=== PATIENT | female | born 1990 | race Caucasian/White ===

== ENCOUNTER 2022-09-04 16:26 | Emergency (ER) | payer OTHER ==
[~2022-09-04] VITALS: Ht 172.7 cm; Wt 81.7 kg
[2022-09-04] MEDS ORDERED: CEPH500 PO (19:10)
== END 2022-09-04 19:18 | disposition home or self-care (01) ==
LOC: ER 16:26
DX: L02.214 Cutaneous abscess of groin (principal); F17.210 Nicotine dependence, cigarettes, uncomplicated
CPT/HCPCS: A9270

== ENCOUNTER → 2023-01-03 | Outpatient (CLI) | payer OTHER ==
[~2023-01-03] MED LIST: CEPH500 PO
[2023-01-03 18:29] LABS: Source, Urine Voided
[2023-01-03 19:38] LABS: Appearance, Urine Turbid (Clear); Bilirubin, Urine Neg (Neg); Blood, Urine Neg (Neg); Color, Urine Yellow (P-Yellow); Glucose Qualitative, Urine Neg (Neg); Ketones, Urine 1+ (Neg); Leukocyte Esterase, Urine 3+ (Neg); Nitrite, Urine Neg (Neg); Protein, Urine 1+ (Neg); Specific Gravity, Urine 1.025 (1.003-1.022); Urobilinogen, Urine 2+ (Normal)
[2023-01-03 20:00] LABS: Amorphous Mod (0-Heavy); Bacteria Mod /hpf; Hyaline Casts 0-2 /lpf (0-2); Red Blood Cells, Urine 0-2 /hpf (0-2); Squamous Epithelial Cells Few /hpf (Few); White Blood Cells, Urine 25-50 /hpf (0-5)
[2023-01-03 20:01] LABS: Calcium Oxalate Crystals Rare /hpf; Granular Casts 0-2 /lpf (0)
[2023-01-04 13:57] LABS: Candida species (DNA Probe) Negative (NEGATIVE); G. vaginalis (DNA Probe) Negative (NEGATIVE); T. vaginalis (DNA Probe) Negative (NEGATIVE)
== END | disposition home or self-care (01) ==
LOC: LAB 18:27 → LAB SHORT 18:27
PROVIDERS: Obstetrics & Gynecology
DX: Z01.419 Encounter for gynecological examination (general) (routine) without abnormal findings (principal); Z11.3 Encounter for screening for infections with a predominantly sexual mode of transmission; O23.599 Infection of other part of genital tract in pregnancy, unspecified trimester; O99.891 Other specified diseases and conditions complicating pregnancy; R30.0 Dysuria
CPT/HCPCS: 81001; 87086; 87480; 87510; 87660

== ENCOUNTER 2023-07-28 07:25 | Inpatient (IN) | payer OTHER ==
[~2023-07-28] VITALS: Ht 172.7 cm; Wt 92.3 kg
[2023-07-28] VITALS (9 sets, daily range): BP systolic 120–137; BP diastolic 68–89
[2023-07-28 08:20] LABS: BASOPHILS ABSOLUTE AUTO 0.04 K/mm3 (0.00-0.23); BASOPHILS PERCENT AUTO 1 % (0-2); EOSINOPHILS PERCENT AUTO 1 % (0-6); Hematocrit 33.3 % (33.0-51.0); Hemoglobin 11.5 g/dL (11.5-16.0); IMMATURE GRAN ABSOLUTE AUTO 0.05 K/mm3 (0.00-0.10); IMMATURE GRAN PERCENT AUTO 1 % (0-1); LYMPHOCYTES ABSOLUTE AUTO 1.77 K/mm3 (0.84-5.20); LYMPHOCYTES PERCENT AUTO 21 % (21-46); MONOCYTES ABSOLUTE AUTO 0.59 K/mm3 (0.16-1.47); MONOCYTES PERCENT AUTO 7 % (4-13); Mean Corpuscular HGB 31.5 pg (26.0-34.0); Mean Corpuscular HGB Conc 34.5 g/dL (31.5-36.5); Mean Corpuscular Volume 91 fL (80-100); Mean Platelet Volume 11.9 fL (9.1-12.4); NEUTROPHILS ABSOLUTE AUTO 5.71 K/mm3 (1.96-9.15); NEUTROPHILS PERCENT AUTO 69 % (41-73); Platelet Count 132 K/mm3 (150-400); RDW Coefficient Variation 13.7 % (11.7-14.2); RDW Standard Deviation 45.1 fL (35.1-46.3); Red Blood Cell Count 3.65 M/mm3 (3.80-5.20); White Blood Cell Count 8.26 K/mm3 (4.00-11.30)
[2023-07-28] MEDS ORDERED: FLINTSTONES WIT18 M2 PO (08:35)
[2023-07-28] MEDS ORDERED: Vitamin C100 M1 PO (08:35)
[2023-07-29 00:20] VITALS: BP 121/70
[2023-07-29 03:29] VITALS: BP 130/82
--- NOTE | 2023-07-29 06:21 | NUR ---
pt requested feeding help. notified nurse no further needs at this time.
[2023-07-29 07:34] VITALS: BP 119/78
[2023-07-29 12:09] VITALS: BP 123/68
[2023-07-29 16:35] VITALS: BP 111/73
--- NOTE | 2023-07-29 18:00 | NUR ---
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 Denies questions, verbalizes understanding.
[2023-07-29 19:33] VITALS: BP 123/57
--- NOTE | 2023-07-29 21:31 | NUR ---
2005: PRINTED DISCHARGE INSTRUCTIONS REVIEWED WITH PATIENT AND SIGNIFICANT OTHER, DENIES ADDITIONAL QUESTIONS AND CONCERNS. DISCHARGE TO HOME TO CARE OF SIGNIFICANT OTHER.
== END 2023-07-29 20:07 | disposition home or self-care (01) | DRG 807 ==
LOC: BC 07:25 → OBS 07:25 → BC 07:37
PROVIDERS: ADMIT Advanced Practice Midwife
PROC: 10E0XZZ Delivery of Products of Conception, External Approach (ICD-10-PCS; principal; 2023-07-28)
PROC: 3E033VJ Introduction of Other Hormone into Peripheral Vein, Percutaneous Approach (ICD-10-PCS; 2023-07-28)
PROC: 10907ZC Drainage of Amniotic Fluid, Therapeutic from Products of Conception, Via Natural or Artificial Opening (ICD-10-PCS; 2023-07-28)
DX: O48.0 Post-term pregnancy (principal); Z37.0 Single live birth; O99.824 Streptococcus B carrier state complicating childbirth; O69.81X0 Labor and delivery complicated by cord around neck, without compression, not applicable or unspecified; Z3A.40 40 weeks gestation of pregnancy
CPT/HCPCS: 85025; 86850; 86900; 86901; A9270; J0290; J1885; J2590; J3010; J7120

== ENCOUNTER 2023-10-03 09:17 | Day surgery (SDC) | payer OTHER ==
[~2023-10-03] VITALS: Ht 170.2 cm; Wt 81.9 kg
[2023-10-03] VITALS (14 sets, daily range): BP systolic 100–144; BP diastolic 66–95
[~2023-10-03 09:17] MED LIST changes: +FLINTSTONES WIT18 M2 PO; +LORA10ER PO; +Vitamin C100 M1 PO
--- NOTE | 2023-10-03 10:56 | NUR ---
[facility] PRE-OP NOTE PT A&OX4, BREATHING RA, NO COMPLAINTS, VSS. Ambulatory in Day Surgery Patient confirms NPO status and agrees with scheduled surgery. Pre-Op teaching done. Pt verbalizes understanding. Patient States Post-Procedure ride home has been arranged.
--- NOTE | 2023-10-03 13:20 | NUR ---
PT TO DAY SURGERY STEP DOWN FROM PACU. PT AWAKE, ALERT AND ORIENTED; ABLE TO MOVE SELF IN BED. VSS. PAIN LEVEL 2/10 AND TOLERABLE. PT HAS CLEAN GENE PAD ON, AND HAS AN UMBILLICAL INCISION THAT IS CLOSED WITH DERMABONND AND A LOWER ABD INCISION; BOTH ARE C/D/I.
--- NOTE | 2023-10-03 13:35 | NUR ---
PO FLUIDS GIVEN, TOLERATING WELL. INCISIONS REMAIN C/D/I. Patient States Post-Procedure ride home has been arranged.
--- NOTE | 2023-10-03 14:05 | NUR ---
Patient up to Ambulate independently. Gait steady. UP TO VOID.
--- NOTE | 2023-10-03 14:13 | NUR ---
Discharged via wheelchair to private car for ride home.
== END 2023-10-03 14:14 | disposition home or self-care (01) ==
LOC: ORSCMMR 09:17 → ORD 10:45 → ORSCMMR 10:45
PROVIDERS: Obstetrics & Gynecology
PROC: 0UT7FZZ Resection of Bilateral Fallopian Tubes, Via Natural or Artificial Opening With Percutaneous Endoscopic Assistance (ICD-10-PCS; principal; 2023-10-03 10:45)
DX: Z30.2 Encounter for sterilization (principal); N80.359 Endometriosis of pelvic sidewall, unspecified side, unspecified depth; Z87.891 Personal history of nicotine dependence
CPT/HCPCS: 88302; A9270; J0690; J1100; J1885; J2250; J2405; J2704; J3010; J7120

== ENCOUNTER 2024-04-18 08:56 | Emergency (ER) | payer OTHER ==
[~2024-04-18] VITALS: Ht 172.7 cm; Wt 84.4 kg
[2024-04-18 09:20] VITALS: BP 127/80
[2024-04-18 09:52] LABS: BASOPHILS ABSOLUTE AUTO 0.04 K/mm3 (0.00-0.23); BASOPHILS PERCENT AUTO 1 % (0-2); EOSINOPHILS ABSOLUTE AUTO 0.15 K/mm3 (0.00-0.68); EOSINOPHILS PERCENT AUTO 2 % (0-6); Hematocrit 41.5 % (33.0-51.0); Hemoglobin 14.2 g/dL (11.5-16.0); IMMATURE GRAN ABSOLUTE AUTO 0.01 K/mm3 (0.00-0.10); IMMATURE GRAN PERCENT AUTO 0 % (0-1); LYMPHOCYTES ABSOLUTE AUTO 1.82 K/mm3 (0.84-5.20); LYMPHOCYTES PERCENT AUTO 29 % (21-46); MONOCYTES ABSOLUTE AUTO 0.43 K/mm3 (0.16-1.47); MONOCYTES PERCENT AUTO 7 % (4-13); Mean Corpuscular HGB 30.9 pg (26.0-34.0); Mean Corpuscular HGB Conc 34.2 g/dL (31.5-36.5); Mean Corpuscular Volume 90 fL (80-100); Mean Platelet Volume 10.6 fL (9.1-12.4); NEUTROPHILS ABSOLUTE AUTO 3.77 K/mm3 (1.96-9.15); NEUTROPHILS PERCENT AUTO 61 % (41-73); Platelet Count 202 K/mm3 (150-400); RDW Coefficient Variation 12.7 % (11.7-14.2); RDW Standard Deviation 41.4 fL (35.1-46.3); White Blood Cell Count 6.22 K/mm3 (4.00-11.30)
[2024-04-18 10:12] LABS: Albumin, Blood 4.1 g/dL (3.4-5.0); Albumin/Globulin Ratio 1.1 (0.8-1.8); Bilirubin, Total 0.4 mg/dL (0.1-1.0); Bun/Creatinine Ratio 17.9 (12.0-20.0); Calcium, Blood 8.4 mg/dL (8.5-10.1); Creatinine, Blood 0.78 mg/dL (0.40-1.00); Globulin, Blood 3.7 g/dL (2.2-4.0); Potassium, Blood 3.7 mmol/L (3.5-5.5); Total Protein, Blood 7.8 g/dL (6.4-8.2)
[2024-04-18 10:19] LABS: Source, Urine Clean Catch
[2024-04-18 10:22] LABS: Appearance, Urine Hazy (Clear); Bilirubin, Urine Neg (Neg); Blood, Urine 5+ (Neg); Color, Urine Yellow (P-Yellow); Glucose Qualitative, Urine Neg (Neg); Ketones, Urine 1+ (Neg); Leukocyte Esterase, Urine 2+ (Neg); Nitrite, Urine Neg (Neg); Protein, Urine 3+ (Neg); Specific Gravity, Urine 1.025 (1.003-1.022); Urobilinogen, Urine 1+ (Normal)
[2024-04-18 10:30] LABS: Bacteria Many /hpf; Red Blood Cells, Urine 25-50 /hpf (0-2); Squamous Epithelial Cells Many /hpf (Few)
== END 2024-04-18 15:07 | disposition home or self-care (01) ==
LOC: ER 08:56
PROVIDERS: Physician Assistant
DX: N93.9 Abnormal uterine and vaginal bleeding, unspecified (principal); F17.210 Nicotine dependence, cigarettes, uncomplicated; Z79.899 Other long term (current) drug therapy
CPT/HCPCS: 76830; 76856; 80053; 81001; 83690; 84703; 85025; 87086; 99284-25

== ENCOUNTER 2024-09-17 05:49 | Day surgery (SDC) | payer OTHER ==
[~2024-09-17] VITALS: Ht 172.7 cm; Wt 83.3 kg
[2024-09-17] VITALS (9 sets, daily range): BP systolic 102–144; BP diastolic 66–94
[2024-09-17] MEDS ORDERED: [UNRECOGNIZED DRUG - OTHER] PO (06:27)
[2024-09-17] MEDS ORDERED: Lactated Ringer's 1,000 ML IV SCH (06:30)
[2024-09-17] MEDS ORDERED: CeFAZolin Sodium 2,000 MG in NS 100 ML IV SCH (06:30)
[2024-09-17] MEDS ORDERED: CeFAZolin Sodium 2,000 MG VIAL ONE (06:56)
--- NOTE | 2024-09-17 06:58 | NUR ---
History, Chart, Medications and Allergies reviewed before start of procedure. Patient confirms NPO status and agrees with scheduled surgery. Patient States Post-Procedure ride home has been arranged withKirk, who she identifies as a life partner.
[2024-09-17] MEDS ORDERED: Dexamethasone Sod Phos 10 MG/ML 1ML VIAL ONE (07:06)
[2024-09-17] MEDS ORDERED: Ondansetron HCl 2 MG / ML 2ML Vial ONE (07:06)
[2024-09-17] MEDS ORDERED: Lidocaine HCl 2% 20 ML MDV ONE (07:06)
[2024-09-17] MEDS ORDERED: propofoL 20 ML IV ONE (07:07)
[2024-09-17] MEDS ORDERED: FentaNYL Citrate 50 MCG/ML 2 ML Injection ONE (07:08)
[2024-09-17] MEDS ORDERED: Ketorolac Tromethamine 30mg Vial ONE (08:06)
[2024-09-17] MEDS ORDERED: OxyCODONE 5 mg/Acetamin 325 mg TABLET PO PRN (08:45)
--- NOTE | 2024-09-17 09:06 | NUR ---
PT TO DAY SURGERY STEP DOWN FROM PACU WITH HYSTEROSCOPY DILATION AND CURETTAGE; BEDSIDE REPORT RECEIVED. PT IS AWAKE, ALERT AND ORIENTED; ABLE TO MOVE SELF IN BED. VSS. PT HAS GENE PAD IN PLACE THAT IS C/D. PT HAS NO COMPLAINTS.
--- NOTE | 2024-09-17 09:27 | NUR ---
PT TOLERATING PO FLUIDS AND CRACKERS. GENE PAD REMAINS C/D
--- NOTE | 2024-09-17 09:41 | NUR ---
Discharge instructions reviewed with patient. Patient verbalizes understanding. Copy given to patient to take home. Patient States Post-Procedure ride home has been arranged.
--- NOTE | 2024-09-17 09:48 | NUR ---
Patient up to Ambulate independently. Gait steady. Up to void.
--- NOTE | 2024-09-17 09:50 | NUR ---
Discharged via wheelchair to private car for ride home.
== END 2024-09-17 09:51 | disposition home or self-care (01) ==
LOC: ORSCMMR 05:49 → ORD 07:30 → ORSCMMR 07:30
PROVIDERS: Obstetrics & Gynecology
PROC: 0U5B8ZZ Destruction of Endometrium, Via Natural or Artificial Opening Endoscopic (ICD-10-PCS; principal; 2024-09-17 07:30)
DX: N92.0 Excessive and frequent menstruation with regular cycle (principal); N94.6 Dysmenorrhea, unspecified; N80.9 Endometriosis, unspecified; F41.8 Other specified anxiety disorders; F90.9 Attention-deficit hyperactivity disorder, unspecified type; Z87.891 Personal history of nicotine dependence; K21.9 Gastro-esophageal reflux disease without esophagitis
CPT/HCPCS: 88305; A9270; J0690; J1100; J1885; J2405; J2704; J3010; J7120

== ENCOUNTER → 2024-12-07 | Outpatient (CLI) | payer OTHER ==
[~2024-12-07] MED LIST changes: +[UNRECOGNIZED DRUG - OTHER] PO
== END ==
LOC: LAB SHORT 07:58 → PLD 07:58 → LAB 07:58
DX: D22.71 Melanocytic nevi of right lower limb, including hip (principal); L81.4 Other melanin hyperpigmentation; D49.2 Neoplasm of unspecified behavior of bone, soft tissue, and skin
CPT/HCPCS: 88305

== ENCOUNTER → 2025-02-09 | Outpatient (CLI) | payer OTHER | LOC: LAB 14:18 → LAB SHORT 14:18 | DX: L02.818 Cutaneous abscess of other sites (principal) | CPT/HCPCS: 87070; 87077; 87147; 87186; 87205 ==